=== PATIENT | female | born 1965 | race Caucasian/White ===

== ENCOUNTER → 2021-08-14 12:04 | Outpatient (CLI) | payer BC, SELFPAY ==
[2021-08-14 12:43] LABS: Add Manual Diff / Slide Review NO; Basophils Absolute Auto 0 /uL (0-100); Basophils Percent Auto 0.4 % (0-2); Eosinophils Absolute Auto 0 /uL (0-450); Eosinophils Percent Auto 0.6 % (2-4); Hematocrit 40.6 % (36-46); Lymphocytes Absolute Auto 2000 /uL (1100-4500); Lymphocytes Percent Auto 36.6 % (25-40); Mean Corpuscular HGB Conc 34.5 % (30-36); Mean Corpuscular Hemoglobin 31.8 PG (26-34); Mean Corpuscular Volume 92.1 fL (80-100); Monocytes Absolute Auto 300 /uL (0-900); Monocytes Percent Auto 6.3 % (3-14); Neutrophils Absolute Auto 3000 /uL (1500-7000); Neutrophils Percent Auto 56.1 % (50-75); Platelet Count 209 X10^3/uL (150-400); Red Cell Distribution Width 13.1 % (11.6-14.8); White Blood Cell Count 5.3 X10^3/uL (4.5-11.0)
[2021-08-14 13:05] LABS: Alanine Aminotransferase 22 IU/L (<35); Albumin 4.5 g/dL (3.5-5.0); Albumin Globulin Ratio 1.7 (1.0-2.8); Alkaline Phosphatase 76 U/L (38-126); Aspartate Aminotransferase 34 IU/L (14-36); BUN Creatinine Ratio 22.5 (6-22); Bilirubin Total 0.5 mg/dL (0.2-1.3); Blood Urea Nitrogen 16 mg/dL (7-17); Calcium 9.2 mg/dL (8.4-10.2); Carbon Dioxide 27 mmol/L (22-32); Chloride 105 mmol/L (98-107); Cholesterol 239 mg/dL (140-199); Estimated Glomerular Filt Rate > 60.0 mL/min (>60); Globulin 2.7 g/dL (1.7-4.1); Glucose 91 mg/dL (70-100); HDL Cholesterol 63 mg/dL (40-60); HEMOLYSIS < 15 (0-50); LDL Cholesterol Calculated 152 mg/dL (<100); Potassium 4.2 mmol/L (3.4-5.1); Sodium 139 mmol/L (137-145); Total Protein 7.2 g/dL (6.3-8.2); Triglycerides 122 mg/dL (35-150)
[2021-08-14 13:24] LABS: Appearance Urine UA CLEAR; Bilirubin Urine UA NEGATIVE (NEGATIVE); Color Urine UA YELLOW; Glucose Urine UA NEGATIVE (Negative); Ketones Urine UA 1+ (NEGATIVE); Leukocyte Esterase Urine UA NEGATIVE (NEGATIVE); Nitrite Urine UA NEGATIVE (Negative); Occult Blood Urine UA NEGATIVE (Negative); Protein Urine UA NEGATIVE (Negative); Urobilinogen Urine UA 0.2 E.U./dL (0.2)
[2021-08-14 13:36] LABS: Bacteria Urine None Seen; Culture Indicated Urine Cult Not Indicated; RBC Urine None Seen (0-5/HPF); Squamous Epithelial Cell Urine 0-1 /HPF (0-5/HPF); TSH w/ Reflex to FT4 6.47 uIU/mL (0.47-4.68); WBC Urine 0-1/HPF (0-5/HPF)
[2021-08-14 14:20] LABS: Free T4, Direct Thyroxine 1.07 ng/dL (0.78-2.19)
== END ==
PROVIDERS: PCP Family Medicine; Referring Provider Family Medicine; Visit Provider Family Medicine
DX: Z13.220 Encounter for screening for lipoid disorders (principal)
CPT/HCPCS: 36415; 80053; 80061; 81001; 84439; 84443; 85025

== ENCOUNTER → 2021-08-18 08:06 | Outpatient (CLI) | payer BC, SELFPAY ==
--- NOTE | 2021-08-18 08:09 | DI.MG.S_ITS ---
BILATERAL DIGITAL SCREENING MAMMOGRAM 3D/2D WITH CAD: 08/18/2021 CLINICAL: Baseline exam Routine screening. Comparison is made to exams dated: 10/30/2008 mammogram and 06/30/2007 mammogram - [facility]. There are scattered fibroglandular elements in both breasts. Current study was also evaluated with a Computer Aided Detection (CAD) system. No significant masses, calcifications, or other findings are seen in either breast. There has been no significant interval change. IMPRESSION: NEGATIVE There is no mammographic evidence of malignancy. A 1 year screening mammogram is recommended. This exam was interpreted at Station ID: [id number]. NOTE: For mammograms, a report in lay terms will be sent to the patient. Approximately 15% of breast malignancies will not be visualized mammographically. In the management of a palpable breast mass, a negative mammogram must not discourage biopsy of a clinically suspicious lesion. Electronically Signed By: Daisy barrett/veda:08/18/2021 09:42:49 letter sent: Normal Exam ACR BI-RADS Category 1: Negative 3341F
== END ==
PROVIDERS: PCP Family Medicine; Referring Provider Family Medicine; Visit Provider Family Medicine
DX: Z12.31 Encounter for screening mammogram for malignant neoplasm of breast (principal)
CPT/HCPCS: 77063; 77067

== ENCOUNTER → 2021-10-13 11:22 | Outpatient (CLI) | payer BC, SELFPAY ==
[2021-10-13 13:06] LABS: COVID19 -Nasal RAPID Negative (Negative)
== END ==
PROVIDERS: PCP Family Medicine; Visit Provider Surgery
DX: Z20.822 Contact with and (suspected) exposure to COVID-19 (principal); Z01.812 Encounter for preprocedural laboratory examination
CPT/HCPCS: 87635; C9803

== ENCOUNTER 2021-10-15 11:24 | Day surgery (SDC) | payer BC, SELFPAY ==
--- NOTE | 2021-10-15 | PATH_ITS ---
[facility] Accession Number: [id number] . 01 Material submitted: . PART A: colon - CECAL COLON POLYP PART B: colon - TRANSVERSE COLON POLYP . 01 Diagnosis: A. Cecum, Polyp, Biopsy: Benign lymphoid aggregate. . B. Transverse Colon, Polyp, Biopsy: Benign lymphoid aggregate. MRV 10/20/2021 1724 Local . 01 Electronically signed: . Ursula Vaca MD, Pathologist NPI- [id number] . 01 Gross description: . Part A: CECAL COLON POLYP: Received in formalin is 1 fragment(s) of sullivan, soft tissue measuring 0.5 x 0.2 x 0.1 cm submitted entirely in 1 cassette(s) Part B: TRANSVERSE COLON POLYP: Received in formalin is 1 fragment(s) of sullivan, soft tissue measuring 0.3 x 0.3 x 0.2 cm submitted entirely in 1 cassette(s) /CPE 10/16/2021 0804 Local . 01 Pathologist provided ICD-10: K63.5 . 01 CPT . 369451, 978473 Performed at: 01 [facility] [address] [place] [address] [id number] MD Yaya Valdez MD Phone: [phone]
[2021-10-15] MEDS: SODIUM CHLORIDE 0.9% 1,000 ML 70 ML IV (11:42)
[2021-10-15 12:07] VITALS: BP 113/77; PULSE 67; RESP 16; TEMP 36.5; O2SAT 99; BMI 25.2
--- NOTE | 2021-10-15 13:37 | PM.HP.1 ---
History of Present Illness History of Present Illness Date Patient Seen: 10/15/21 Time Patient Seen: 13:38 Chief complaint: SDC Narrative: Patient is a pleasant 56-year-old female who presented for colonoscopy. She had a colonoscopy in her early 40s after her dad was diagnosed with colon cancer in his 60s. Her dad did have a history Crohn's colitis and colectomy had been discussed many times prior. She denies personal history of colon polyps. Patient History Family & Social History Social History: household members spouse Tobacco & Substance use: Smoking Status Never smoker alcohol intake never Substance Use Type does not use Meds Home Medications and Allergies Home Medications Medication Instructions Recorded Confirmed Type apple cider vinegar 600 mg capsule 600 mg PO DAILY 08/14/21 10/15/21 History biotin 2,500 mcg capsule 2,500 mcg PO DAILY 08/14/21 10/15/21 History omega-3 fatty acids 1,000 mg 1,000 mg PO DAILY 08/14/21 08/14/21 History capsule (Super [place]-3) turmeric 400 mg capsule mg PO .DAILY cap 08/14/21 08/14/21 History Allergies Allergy/AdvReac Type Severity Reaction Status Date / Time hydrocodone Allergy Mild Abdominal Verified 10/15/21 11:47 Pain ibuprofen Allergy Mild Abdominal Verified 10/15/21 11:47 Pain naproxen Allergy Mild Abdominal Verified 10/15/21 11:47 Pain oxycodone AdvReac Mild Abdominal Verified 10/15/21 11:47 Pain Review of Systems Review of Systems ROS: Yes All systems reviewed with the patient and are negative except as otherwise documented Exam Vital Signs (past 8 hours): - 10/15/21 12:07 Temperature 97.7 F Pulse Rate 67 Respiratory Rate 16 Blood Pressure 113/77 Pulse Oximetry 99 Oxygen Delivery Method Room Air Const General: cooperative, healthy appearing, comfortable, well developed and well groomed [facility] Head: normocephalic and atraumatic Resp Effort & Inspection: normal respiratory effort, able to speak in complete sentences and abnormal respiratory pattern Auscultation: clear to auscultation bilaterally Cardio Rate: regular rate Rhythm: regular rhythm GI Palpation: soft Auscultation: normal bowel sounds Extrem General: no clubbing, cyanosis or edema Assessment & Plan Assessment & Plan narrative: 1. Colon cancer screening, high risk family history colon cancer Colonoscopy today, further recommendations to follow Time Spent With Patient Critical Care time: I spent a total of [] minutes of critical care time on this patient's care today; this time is exclusive of procedural time.
[2021-10-15 14:09] VITALS: BP 123/60; PULSE 70; RESP 16; TEMP 36.9; O2SAT 98
[2021-10-15 14:14] VITALS: BP 122/60; PULSE 69; RESP 16; O2SAT 98
--- NOTE | 2021-10-15 14:14 | PM.OP.COLON ---
Operative Date/Time/Diagnoses Date of procedure: 10/15/21 Time of procedure: 13:50 Procedure Notes Procedure in detail: Surgeon: Yenifer Patiño DO Procedure: Colonoscopy with polypectomy Preoperative diagnosis: 1. Screening colonoscopy, high risk family history colon cancer father early 60s, last colonoscopy greater than 10 years ago Postoperative diagnosis: 1. 3 mm cecal colon polyp removed with Jumbo forceps 2. 2 mm transverse colon polyp removed with Jumbo forceps 3. Sigmoid diverticulosis 4. Grade 1 internal hemorrhoids Medications: Monitored anesthesia care Preanesthesia Assessment An H and P was performed/updated and the Px?s ASA class is 1. The procedure was discussed in detail with the patient. The potential risks and complications including infection, bleeding, missed lesions, perforation, need for surgery in case of perforation, prolonged hospital stay, and were explained. A brief question and answer period was allotted and once all questions were answered, informed consent was obtained. The patient was brought back to the procedure room and placed on standard monitoring. The patient?s vital signs were monitored continuously throughout the entire procedure. Prior to starting, a timeout was performed to confirm the patient?s identity, allergies, medications, and procedure. Procedure in detail The patient was placed in left lateral decubitus position and once adequate sedation was obtained a STACI was performed. The digital rectal examination did not reveal any palpable lesions. The tip of the colonoscope was placed in the anal canal and advanced without difficulty all the way to the cecum which was identified by the appendiceal orifice and the ileocecal valve. Careful examination of all raímrez of the colon was performed with irrigation of any residual stool. A 3 mm polyp was identified in cecum which was removed with Jumbo forceps. In addition a 2 mm polyp was found in the transverse colon removed Jumbo forceps. Scattered small diverticulum noted in the sigmoid colon. Grade 1 internal hemorrhoids were noted on retroflexion. The patient tolerated the procedure well and will be brought back to the recovery area to be discharged once criteria are met. The prep was judged to be good/excellent and adequate to identify polyps less than 5 mm. The withdrawal time was 10min. Complications There were no complications and estimated blood loss was minimal. Recommendations: Resume previous diet Continue outPx medications Follow up pathology results Repeat colonoscopy will be determined after pathology results are reviewed An emergency contact number was given to the patient for any complications related to the procedure
[2021-10-15 14:19] VITALS: BP 126/60; PULSE 73; RESP 18; O2SAT 98
[2021-10-15 14:26] VITALS: BP 125/60; PULSE 73; RESP 16; TEMP 36.7; O2SAT 100
--- NOTE | 2021-10-15 14:28 | SUR.PHASEI ---
stable PACU stay.
[2021-10-15 15:02] VITALS: BP 114/62; PULSE 77; RESP 16; TEMP 36.6; O2SAT 100
--- NOTE | 2021-10-15 15:15 | SUR.PHASEII ---
Pt ready to go, left in stable condition
== END 2021-10-15 15:00 | disposition home or self-care (01) ==
PROVIDERS: PCP Family Medicine; Referring Provider Student in an Organized Health Care Education/Training Program; Visit Provider Student in an Organized Health Care Education/Training Program
PROC: 0DJD8ZZ Inspection of Lower Intestinal Tract, Via Natural or Artificial Opening Endoscopic (ICD-10-PCS; CPT 45378; principal; 2021-10-15 13:30)
DX: Z12.11 Encounter for screening for malignant neoplasm of colon (principal); Z80.0 Family history of malignant neoplasm of digestive organs; K64.0 First degree hemorrhoids; K57.30 Diverticulosis of large intestine without perforation or abscess without bleeding
CPT/HCPCS: 45380; J2704

== ENCOUNTER → 2024-01-14 08:33 | Outpatient (CLI) | payer OTHER, SELFPAY ==
--- NOTE | 2024-01-14 08:35 | DI.RAD.S_ITS ---
PROCEDURE: XR FOOT LT MIN 3V INDICATIONS: FOOT INJURY TECHNIQUE: 3 views of the foot were acquired. COMPARISON: None. FINDINGS: Bones: Mildly displaced fracture at the base of the 1st proximal phalanx. Intra-articular extension is present. Soft tissues: No tibiotalar joint effusion. Achilles tendon appears normal. IMPRESSION: 1st proximal phalanx base intra-articular fracture. Dictated by: Cata Coronel M.D. on 01/14/2024 at 13:44 Approved by: Cata Coronel M.D. on 01/14/2024 at 13:44
== END ==
PROVIDERS: PCP Family Medicine; Referring Provider Nurse Practitioner Family; Visit Provider Nurse Practitioner Family
DX: M79.672 Pain in left foot (principal); S99.922A Unspecified injury of left foot, initial encounter
CPT/HCPCS: 73630